=== PATIENT | female | born 1975 | race Caucasian/White ===

== ENCOUNTER → 2016-10-30 | Outpatient (CLI) | payer BC ==
[~2016-10-30] MED LIST: DENOINJ IM; DOCU-105 PO; FLV1 PO; FNTTP50 TD; LEVO25TA5 PO; MRLP17X PO; NAPR-943 PO; ONDA4TAB46 PO; OXYC-164 PO; OXYC-609 PO; PRD/25 PO; PRED10TA PO; PRLSR20 PO; PROC1TAB5 PO; SNQ/25 PO; SPIR1TAB46 PO; WLLSR/150 PO; [UNRECOGNIZED DRUG - CODE]
== END | disposition home or self-care (01) ==
LOC: C.PAPS 10:02
PROVIDERS: ATTEND Obstetrics & Gynecology
DX: Z01.419 Encounter for gynecological examination (general) (routine) without abnormal findings (principal)

== ENCOUNTER 2016-12-22 14:24 | Inpatient (IN) | payer BC ==
[2016-12-22] VITALS (7 sets, daily range): BP systolic 98–117; BP diastolic 68–80; PULSE 80–92; TEMP 36.6–36.8; O2SAT 96–100; BMI 20.2
[~2016-12-22] VITALS: Ht 160 cm; Wt 52.3 kg
[~2016-12-22 14:24] MED LIST changes: -DOCU-105 PO; -FNTTP50 TD; -LEVO25TA5 PO; -MRLP17X PO; -OXYC-164 PO; -OXYC-609 PO; -PRED10TA PO; -SPIR1TAB46 PO; -[UNRECOGNIZED DRUG - CODE]
[2016-12-22 15:05] LABS: BASO % 1.2 %; BASO ABS # 0.04 K/uL (0-0.2); EOS % 0.9 %; HEMATOCRIT 34.5 % (37-47); IG% 1.2 %; LYMPH ABS # 0.58 K/uL (1.2-3.4); MEAN CELL VOLUME 88.7 fL (80-100); MEAN CORPUSCULAR HEMOGLOBIN 28.3 pg (25-34); MEAN CORPUSCULAR HGB CONC 31.9 g/dl (32-36); MEAN PLATELET VOLUME 9.6 fL (7.4-10.4); MONO % 24.8 %; NEUT % 53.9 %; PLATELET COUNT 274 K/uL (130-400); RED BLOOD COUNT 3.89 M/uL (4.2-5.4); WHITE BLOOD COUNT 3.23 K/uL (4.8-10.8)
--- NOTE | 2016-12-22 15:19 | EMERGENCY ROOM VISIT NOTE ---
History First contact with patient: 15:05 Chief Complaint: ABDOMINAL PAIN Stated Complaint: FLUID RETENTION IN ABD., PAIN/DISCOMFORT History of Present Illness The patient is a 41 year old female with stage IV breast cancer involving her brain, liver and bones (under Dr Alan Hendrickson) who presents to the Emergency Room with complaints of abdominal pain and distension. She recently was diagnosed with moderate ascites and bilateral pleural effusion (L>R) on PET scan on 12/18/2016 and plan was for paracentesis on Friday in 2 days time. However she has had much worse abdominal distension and pain since then and does not feel she can wait till Friday. She is currently undergoing palliative chemotherapy (2 weeks on, 2 weeks off, due to restart on Friday). The abdominal distension is now making it harder to take deep breaths and she is becoming increasing short of breath on exertion (however her main issues is the abdominal pain currently). She denies any fevers or chills. Review of Systems Dark urine for the last 2 months Occasional intermittent chest discomfort in center of her chest for the last 2 weeks worse on coughing, dull ache in the center of her chest, 1-08/23, not currently having this. See HPI for pertinent positives & negatives. A total of 10 systems reviewed and were otherwise negative. Past Medical/Surgical History Medical Problems: (1) Rheumatoid arthritis Ascites Bilateral pleural effusion Breast cancer metastasized to bone Cancer of left breast metastatic to brain Intracranial mass Social History Smoking Status: Never Smoker Drug Use: none Marital Status: single Housing Status: lives with family Occupation Status: employed Current/Historical Medications Scheduled Bupropion Hcl (Wellbutrin Sr), 150 MG PO QAM Denosumab (Xgeva), 1 DOSE IM MONTHLY Folic Acid (Folic Acid), 2 MG PO QAM Levothyroxine Sodium (Levothyroxine Sodium), 25 MCG PO DAILY Naproxen-Esomeprazole Magnesiu (Vimovo), 1 TAB PO BID Prednisone (Prednisone), 5 MG PO DAILY Scheduled PRN Doxepin (Sinequan), 25 MG PO HS PRN for PRN Ondansetron Hcl (Zofran), 4 MG PO PRN PRN for Nausea Oxycodone HCl (Oxycodone HCl), 5 MG PO Q4 PRN for Pain Prochlorperazine Maleate (Compazine), 1 TAB PO Q6 PRN for Nausea Miscellaneous Medications Vinorelbine Tartrate (Navelbine) Allergies Coded Allergies: Sulfa Antibiotics (Verified Allergy, Unknown, rash/hives, 01/26/16) Physical Exam Vital Signs Date Time Temp Pulse Resp B/P (MAP) Pulse Ox O2 Delivery O2 Flow Rate FiO2 12/22/16 17:45 94 16 113/87 96 12/22/16 15:38 94 24 111/82 98 Room Air 12/22/16 15:02 97 Room Air 12/22/16 15:00 99 12/22/16 14:30 36.9 102 20 115/83 98 Room Air Physical Exam VITAL SIGNS: were reviewed as above GENERAL: moderate acute distress with abdominal pain, appears cachetic HEAD: Normocephalic and atraumatic EYES: extraocular muscles intact, pupils equal and reactive to light OROPHARYNX: non erythematous, clear and dry NECK: no meningismus LUNGS: bilateral decreased breath sounds at bases, no accessory muscle use, no respiratory distress HEART: Regular rate and rhythm, heart sounds 1+2, no murmurs ABDOMEN: Firm, large ascites on percussion, generalized tenderness, no guarding , no rebound, normal bowel sounds BACK: no CVA tenderness EXTREMITIES: Warm and well perfused, no calf tenderness/swelling, no pedal edema. NEUROLOGICALLY: Awake alert and oriented. There is no facial droop. Speech is clear. Vision is grossly normal., moving all 4 limbs equally Medical Decision & Procedures ER Provider Diagnostic Interpretation: ABDOMEN 2VIEW W/PA CHEST RTN CLINICAL HISTORY: Abdominal pain and distention. COMPARISON STUDY: 10/19/2015 FINDINGS: There is a right internal jugular A-Port catheter present. The heart is normal in size. There is a small left pleural effusion with left lower lobe atelectasis/consolidation. No free air is visualized. Erect and supine views the abdomen reveal no abnormally dilated loops of large or small bowel. There are no transition zone to indicate bowel obstruction. There are diffuse skeletal metastasis. IMPRESSION: 1. Extensive diffuse skeletal metastasis 2. No evidence of bowel obstruction. No evidence of free air 3. Left pleural effusion with left lower lobe atelectasis/consolidation Electronically signed by: Romel Johnson M.D. 12/22/2016 4:05 PM Dictated Date/Time: 12/22/2016 4:03 PM Laboratory Results 12/22/16 14:50 Red Blood Count 3.89, Mean Corpuscular Volume 88.7, Mean Corpuscular Hemoglobin 28.3, Mean Corpuscular Hemoglobin Concent 31.9, Mean Platelet Volume 9.6, Neutrophils (%) (Auto) 53.9, Lymphocytes (%) (Auto) 18.0, Monocytes (%) (Auto) 24.8, Eosinophils (%) (Auto) 0.9, Basophils (%) (Auto) 1.2, Neutrophils # (Auto ) 1.74, Lymphocytes # (Auto) 0.58, Monocytes # (Auto) 0.80, Eosinophils # (Auto ) 0.03, Basophils # (Auto) 0.04 12/22/16 14:50 Test 12/22/16 14:50 12/22/16 17:32 White Blood Count 3.23 K/uL (4.8-10.8) Red Blood Count 3.89 M/uL (4.2-5.4) Hemoglobin 11.0 g/dL (12.0-16.0) Hematocrit 34.5 % (37-47) Mean Corpuscular Volume 88.7 fL (80-100) Mean Corpuscular Hemoglobin 28.3 pg (25-34) Mean Corpuscular Hemoglobin Concent 31.9 g/dl (32-36) Platelet Count 274 K/uL (130-400) Mean Platelet Volume 9.6 fL (7.4-10.4) Neutrophils (%) (Auto) 53.9 % Lymphocytes (%) (Auto) 18.0 % Monocytes (%) (Auto) 24.8 % Eosinophils (%) (Auto) 0.9 % Basophils (%) (Auto) 1.2 % Neutrophils # (Auto) 1.74 K/uL (1.4-6.5) Lymphocytes # (Auto) 0.58 K/uL (1.2-3.4) Monocytes # (Auto) 0.80 K/uL (0.11-0.59) Eosinophils # (Auto) 0.03 K/uL (0-0.5) Basophils # (Auto) 0.04 K/uL (0-0.2) RDW Standard Deviation 70.1 fL (36.4-46.3) RDW Coefficient of Variation 22.3 % (11.5-14.5) Immature Granulocyte % (Auto) 1.2 % Immature Granulocyte # (Auto) 0.04 K/uL (0.00-0.02) Nucleated RBC Absolute Count (auto) 0.12 K/uL (0-0) Nucleated Red Blood Cells % 3.7 % Polychromasia 1+ Poikilocytosis PRESENT Anisocytosis PRESENT Ovalocytes 1+ Echinocytes 1+ Acanthocytes 2+ Schistocytes 2+ Prothrombin Time 12.7 SECONDS (9.0-12.0) Prothromb Time International Ratio 1.2 (0.9-1.1) Activated Partial Thromboplast Time 33.2 SECONDS (21.0-31.0) Partial Thromboplastin Ratio 1.3 Anion Gap 11.0 mmol/L (3-11) Est Creatinine Clear Calc Drug Dose 89.5 ml/min Estimated GFR () 124.8 Estimated GFR (Non- 107.7 BUN/Creatinine Ratio 16.4 (10-20) Calcium Level 7.8 mg/dl (8.5-10.1) Total Bilirubin 1.2 mg/dl (0.2-1) Aspartate Amino Transf (AST/SGOT) 89 U/L (15-37) Alanine Aminotransferase (ALT/SGPT) 35 U/L (12-78) Alkaline Phosphatase 626 U/L (45-117) Total Protein 6.0 gm/dl (6.4-8.2) Albumin 2.7 gm/dl (3.4-5.0) Globulin 3.3 gm/dl (2.5-4.0) Albumin/Globulin Ratio 0.8 (0.9-2) Lipase 64 U/L (73-393) Urine Color YELLOW Urine Appearance CLEAR (CLEAR) Urine pH 6.0 (4.5-7.5) Urine Specific [place] 1.011 (1.000-1.030) Urine Protein NEG (NEG) Urine Glucose (UA) NEG (NEG) Urine Ketones NEG (NEG) Urine Occult Blood NEG (NEG) Urine Nitrite NEG (NEG) Urine Bilirubin NEG (NEG) Urine Urobilinogen NEG (NEG) Urine Leukocyte Esterase NEG (NEG) Medications Administered Medications (Trade) Dose Ordered Sig/Sindy Route Start Time Stop Time Status Last Admin Dose Admin Morphine Sulfate (MoRPHine SULFATE INJ) 4 mg NOW STAT IV 12/22/16 15:24 12/22/16 15:25 DC 12/22/16 15:34 4 MG Ondansetron HCl (Zofran Inj) 4 mg NOW STAT IV 12/22/16 15:24 12/22/16 15:25 DC 12/22/16 15:33 4 MG Morphine Sulfate (MoRPHine SULFATE INJ) 2 mg NOW STAT IV 12/22/16 16:14 12/22/16 16:15 DC 12/22/16 16:20 2 MG Morphine Sulfate (MoRPHine SULFATE INJ) 4 mg NOW STAT IV 12/22/16 17:43 12/22/16 17:50 DC 12/22/16 17:53 4 MG ED Course 15:10 Complete history and physical and examination performed 15:[address] Guzman who advised abdominal XR series and separately saw and examined the patent around 16:10 16:[address] Koch (see below) 16:[address] Johnson regarding possibility of US paracentesis today or tomorrow. 17:[address] Marcelino who accepted the patient for evaluation for admission Medical Decision Prior records/ancillary studies reviewed. Triage Nursing notes reviewed. Additional history obtained from patient. The patient's history was concerning for abdominal pain and distension. Differential diagnosis: Etiologies such as ascites, appendicitis, diverticulitis, PUD, biliary pathology , UTI, pancreatitis, obstruction, mesenteric ischemia, aortic pathology, infections, inflammatory bowel disease, renal colic, as well as others were entertained. Physical examination findings: As above. ER treatment provided: Morphine given for pain, Zofran for nausea. On reassessment the patient felt better but had continuing abdominal pain. Diagnostics interpreted by me: The labs revealed mild anemia, low WBC, elevated ALP, AST, INR and APTT. Imaging studies: Abdominal XR series as above does not suggest obstruction as cause consistent with examination. CXR shows b/l pleural effusion L>R consistent with recent PET scan. Consultation: A consultation was placed with [facility] oncology (Dr Koch) who suggested admission under medicine given pain not under control. A consultation was placed with the radiologist Dr Johnson who suggested admission under hospitalist group for US guided paracentesis tomorrow. No current indication for emergent treatment as does not appear infected. A consultation was placed with the [facility] [place]ist Dr Marcelino who will evaluate the patient for admission/observation. This appears to be progression of her presumed malignant ascites on examination. She also has By the evaluation outlined above emergent etiologies such as appendicitis, diverticulitis, PUD, biliary pathology, UTI, pancreatitis , obstruction, mesenteric ischemia, aortic pathology, infections, inflammatory bowel disease, renal colic, as well as others were deemed relatively unlikely. The patient was informed about the findings as listed above. All questions were answered and she was pleased with the treatment plan. Consults Time Called: 17:05 Consulting Physician: [facility] (Dr Marcelino) Discussed patient in person and accepted @ 17:05 Impression Primary Impression: Ascites Additional Impression: Bilateral pleural effusion Departure Information Dispostion Being Evaluated By Hospitalist Condition FAIR Referrals Alan Hendrickson M.D. (PCP) Jacobo Bill, DO Patient Instructions My [facility] Resident Tracking Resident Involvement: Resident Care Provided Care Provided: Adult ED Problem Qualifiers Primary Impression: Ascites Ascites type: malignant Qualified Codes: R18.0 - Malignant ascites
[2016-12-22 15:20] LABS: BUN/CREATININE RATIO 16.4 (10-20); CALCIUM 7.8 mg/dl (8.5-10.1); CREATININE 0.67 mg/dl (0.60-1.20); POTASSIUM 3.9 mmol/L (3.5-5.1)
[2016-12-22 15:23] LABS: ALB/GLOB RATIO 0.8 (0.9-2)
[2016-12-22] MEDS ORDERED: ONDANSETRON INJ 2 MG/ML 2 ML VIAL IV STA (15:24)
[2016-12-22] MEDS ORDERED: MoRPHine SULFATE 4 MG/ML 1 ML CARP\\VIAL IV STA ×2 (15:24→17:43)
[2016-12-22 15:28] LABS: INR 1.2 (0.9-1.1); PARTIAL THROMBOPLASTIN RATIO 1.3; PROTHROMBIN TIME (PATIENT) 12.7 SECONDS (9.0-12.0)
[2016-12-22 15:30] LABS: ACANTHOCYTES 2+; ANISOCYTOSIS PRESENT; COMPLETE YES; ECHINOCYTES 1+; OVALOCYTES 1+; POIKILOCYTOSIS PRESENT; POLYCHROMASIA 1+; SCHISTOCYTES 2+
[2016-12-22] MEDS ORDERED: LEVO25TA5 PO (16:04)
[2016-12-22] MEDS ORDERED: OXYC-609 PO (16:04)
[2016-12-22] MEDS ORDERED: [UNRECOGNIZED DRUG - CODE] (16:06)
--- NOTE | 2016-12-22 16:06 | DIAGNOSTIC IMAGING REPORT ---
ABDOMEN 2VIEW W/PA CHEST RTN CLINICAL HISTORY: Abdominal pain and distention. COMPARISON STUDY: 10/19/2015 FINDINGS: There is a right internal jugular A-Port catheter present. The heart is normal in size. There is a small left pleural effusion with left lower lobe atelectasis/consolidation. No free air is visualized. Erect and supine views the abdomen reveal no abnormally dilated loops of large or small bowel. There are no transition zone to indicate bowel obstruction. There are diffuse skeletal metastasis. IMPRESSION: 1. Extensive diffuse skeletal metastasis 2. No evidence of bowel obstruction. No evidence of free air 3. Left pleural effusion with left lower lobe atelectasis/consolidation Electronically signed by: Romel Johnson M.D. 12/22/2016 4:05 PM Dictated Date/Time: 12/22/2016 4:03 PM
[2016-12-22] MEDS ORDERED: MoRPHine SULFATE 2 MG/ML CARP IV STA (16:14)
--- NOTE | 2016-12-22 16:15 | EMERGENCY ROOM VISIT NOTE ---
ED Visit Note First contact with patient: 15:05 Resident Physician Supervision Note: I was present with Dr. Tyler during the history and exam. I discussed the case with the resident and agree with the findings and plan as documented in the note. Documented By: Emir Guzman
[2016-12-22] MEDS ORDERED: MoRPHine SULFATE 4 MG/ML 1 ML CARP\\VIAL ONE (17:51)
[2016-12-22 17:56] LABS: URINE APPEARANCE CLEAR (CLEAR); URINE BILIRUBIN NEG (NEG); URINE COLOR YELLOW; URINE NITRITE NEG (NEG); URINE SPECIFIC GRAVITY 1.011 (1.000-1.030); UROBILINOGEN NEG (NEG); ZZUR CULT IF INDIC CLEAN CATCH NO
[2016-12-22 18:14] LABS: MANUAL MICROSCOPIC REQUIRED? NO; REVIEW REQ? NO
[2016-12-22] MEDS ORDERED: ONDANSETRON INJ 2 MG/ML 2 ML VIAL IV PRN (18:30)
[2016-12-22] MEDS ORDERED: DOXEPIN HCL 25 MG CAP PO PRN (18:30)
[2016-12-22] MEDS ORDERED: MoRPHine SULFATE 2 MG/ML CARP IV PRN (18:30)
--- NOTE | 2016-12-22 19:40 | History and Physical ---
History & Physical Date & Time of Service: Dec 22, 2016 at 19:29 Chief Complaint: Ascites,Cancer Of Left Breast Metastatic To Brain Primary Care Physician: Jacobo Bill DO History of Present Illness Source: patient The patient is a 41-year-old female with stage IV metastatic breast cancer involving brain, liver and bones, with PET CT on 12/18/2016 demonstrating ascites, with planned paracentesis on December 24, who presents to the emergency department with worsening abdominal pain and distention. She currently is undergoing chemotherapy with 2 weeks on and 2 weeks off cycle, there is due to restart in 3 days. She has noted becoming more short of breath over the past several days as well. She has not had any recent travel and she has not had any sick exposures. Social History Smoking Status: Never Smoker Smokeless Tobacco Use: No Alcohol Use: none Drug Use: none Marital Status: single Occupational Status: employed Multi-Drug Resistant Organisms History of MDRO: No Allergies Coded Allergies: Sulfa Antibiotics (Verified Allergy, Unknown, rash/hives, 01/26/16) Home Medications Scheduled Bupropion Hcl (Wellbutrin Sr), 150 MG PO QAM Denosumab (Xgeva), 1 DOSE IM MONTHLY Folic Acid (Folic Acid), 2 MG PO QAM Levothyroxine Sodium (Levothyroxine Sodium), 25 MCG PO DAILY Naproxen-Esomeprazole Magnesiu (Vimovo), 1 TAB PO BID Prednisone (Prednisone), 5 MG PO DAILY Scheduled PRN Doxepin (Sinequan), 25 MG PO HS PRN for PRN Ondansetron Hcl (Zofran), 4 MG PO PRN PRN for Nausea Oxycodone HCl (Oxycodone HCl), 5 MG PO Q4 PRN for Pain Prochlorperazine Maleate (Compazine), 1 TAB PO Q6 PRN for Nausea Miscellaneous Medications Vinorelbine Tartrate (Navelbine) Review of Systems The patient denies chest pain, palpitations, cough, sore throat, fevers, chills , sweats, nausea, vomiting, blood in urine or stool, dysuria, urinary frequency or urgency, lightheadedness, dizziness, headache, memory loss, rash, abnormal bruising or bleeding, imbalance, focal weakness, numbness or tingling in arms or legs, back or neck pain, night sweats, or allergy symptoms. The review of systems is otherwise negative other than for that already noted above, and at least 10 systems have been reviewed. Physical Exam Vital Signs Date Time Temp Pulse Resp B/P (MAP) Pulse Ox O2 Delivery O2 Flow Rate FiO2 12/22/16 19:07 36.7 87 20 115/80 (92) 100 Room Air 12/22/16 18:45 89 20 117/78 94 Room Air 12/22/16 17:45 94 16 113/87 96 12/22/16 15:38 94 24 111/82 98 Room Air 12/22/16 15:02 97 Room Air 12/22/16 15:00 99 12/22/16 14:30 36.9 102 20 115/83 98 Room Air The patient is awake, well-developed and adequately nourished, alert and oriented 3, normocephalic and atraumatic, lying in bed and in no acute distress. HEENT--PERRL, EOMI, mucous membranes and oropharynx normal. Neck--supple, no JVD or bruits, thyroid normal, trachea midline, no adenopathy. Heart--normal S1 and S2, no extra beats, no murmurs, rubs or gallops. Lungs--clear bilaterally with decreased breath sounds left base, no respiratory distress, no accessory muscle use. Abdomen--normal bowel sounds and mildly firm and distended, mildly tender. Extremities--no cyanosis, clubbing, there is trace bilateral pitting edema. There are good distal pulses b/l. Dermatologic--normal skin turgor, normal color, warm and dry, no abnormal lymph nodes, no rash. Neurologic--cranial nerves II through XII grossly intact, motor and sensory examination normal. Rheumatologic--normal range of motion, nontender, muscles and joints. Psychiatric--normal affect. Diagnostics Laboratory Results Results Past 24 Hours Test 12/22/16 14:50 12/22/16 17:32 Range/Units White Blood Count 3.23 4.8-10.8 K/uL Red Blood Count 3.89 4.2-5.4 M/uL Hemoglobin 11.0 12.0-16.0 g/dL Hematocrit 34.5 37-47 % Mean Corpuscular Volume 88.7 80-100 fL Mean Corpuscular Hemoglobin 28.3 25-34 pg Mean Corpuscular Hemoglobin Concent 31.9 32-36 g/dl Platelet Count 274 130-400 K/uL Mean Platelet Volume 9.6 7.4-10.4 fL Neutrophils (%) (Auto) 53.9 % Lymphocytes (%) (Auto) 18.0 % Monocytes (%) (Auto) 24.8 % Eosinophils (%) (Auto) 0.9 % Basophils (%) (Auto) 1.2 % Neutrophils # (Auto) 1.74 1.4-6.5 K/uL Lymphocytes # (Auto) 0.58 1.2-3.4 K/uL Monocytes # (Auto) 0.80 0.11-0.59 K/uL Eosinophils # (Auto) 0.03 0-0.5 K/uL Basophils # (Auto) 0.04 0-0.2 K/uL RDW Standard Deviation 70.1 36.4-46.3 fL RDW Coefficient of Variation 22.3 11.5-14.5 % Immature Granulocyte % (Auto) 1.2 % Immature Granulocyte # (Auto) 0.04 0.00-0.02 K/uL Nucleated RBC Absolute Count (auto) 0.12 0-0 K/uL Nucleated Red Blood Cells % 3.7 % Polychromasia 1+ Poikilocytosis PRESENT Anisocytosis PRESENT Ovalocytes 1+ Echinocytes 1+ Acanthocytes 2+ Schistocytes 2+ Prothrombin Time 12.7 9.0-12.0 SECONDS Prothromb Time International Ratio 1.2 0.9-1.1 Activated Partial Thromboplast Time 33.2 21.0-31.0 SECONDS Partial Thromboplastin Ratio 1.3 Sodium Level 140 136-145 mmol/L Potassium Level 3.9 3.5-5.1 mmol/L Chloride Level 106 98-107 mmol/L Carbon Dioxide Level 23 21-32 mmol/L Anion Gap 11.0 3-11 mmol/L Blood Urea Nitrogen 11 7-18 mg/dl Creatinine 0.67 0.60-1.20 mg/dl Est Creatinine Clear Calc Drug Dose 89.5 ml/min Estimated GFR () 124.8 Estimated GFR (Non- 107.7 BUN/Creatinine Ratio 16.4 10-20 Random Glucose 124 70-99 mg/dl Calcium Level 7.8 8.5-10.1 mg/dl Total Bilirubin 1.2 0.2-1 mg/dl Aspartate Amino Transf (AST/SGOT) 89 15-37 U/L Alanine Aminotransferase (ALT/SGPT) 35 12-78 U/L Alkaline Phosphatase 626 45-117 U/L Total Protein 6.0 6.4-8.2 gm/dl Albumin 2.7 3.4-5.0 gm/dl Globulin 3.3 2.5-4.0 gm/dl Albumin/Globulin Ratio 0.8 0.9-2 Lipase 64 73-393 U/L Urine Color YELLOW Urine Appearance CLEAR CLEAR Urine pH 6.0 4.5-7.5 Urine Specific [place] 1.011 1.000-1.030 Urine Protein NEG NEG Urine Glucose (UA) NEG NEG Urine Ketones NEG NEG Urine Occult Blood NEG NEG Urine Nitrite NEG NEG Urine Bilirubin NEG NEG Urine Urobilinogen NEG NEG Urine Leukocyte Esterase NEG NEG Diagnostic Radiology Patient Name: SAUL NIEVES Unit Number: [id number] Dictated: 12/22/161602 Transcribed: 12/22/161602 ARG Printed Date/Time: [~ rep prt dt]/[~ rep prt tm] [~ rep ct labl] - [~ rep ct ivnm] [facility] [place] [address] Dictated: 12/22/161602 Transcribed: 12/22/161602 ARG Printed Date/Time: [~ rep prt dt]/[~ rep prt tm] [~ rep ct labl] - [~ rep ct ivnm] [~ rep ct add3]] ABDOMEN 2VIEW W/PA CHEST RTN CLINICAL HISTORY: Abdominal pain and distention. COMPARISON STUDY: 10/19/2015 FINDINGS: There is a right internal jugular A-Port catheter present. The heart is normal in size. There is a small left pleural effusion with left lower lobe atelectasis/consolidation. No free air is visualized. Erect and supine views the abdomen reveal no abnormally dilated loops of large or small bowel. There are no transition zone to indicate bowel obstruction. There are diffuse skeletal metastasis. IMPRESSION: 1. Extensive diffuse skeletal metastasis 2. No evidence of bowel obstruction. No evidence of free air 3. Left pleural effusion with left lower lobe atelectasis/consolidation Electronically signed by: Romel Johnson M.D. 12/22/2016 4:05 PM Dictated Date/Time: 12/22/2016 4:03 PM The status of this report is Signed. Draft = Not yet reviewed or approved by Radiologist. Signed = Reviewed and approved by Radiologist. <AttendingPhy></AttendingPhy> <FamilyPhy>Alan Hendrickson M.D.</FamilyPhy> < PrimaryPhy>Jacobo Bill, </PrimaryPhy> <UnitNumber>[id number]</ UnitNumber> <VisitNumber>[id number]</VisitNumber> <PatientName>SAUL NIEVES Mitzi </PatientName> <DateOfBirth>1975</DateOfBirth> <Location>[facility]</Location> <ServiceDate>12/22/16</ServiceDate> <MNE>ESINDI</MNE> <OrderingPhy>Juno Tyler MD</OrderingPhy> <OrderingPhyMNE>f rep ord dr jeter</OrderingPhyMNE> < DictatingPhyMNE>f rep dict dr jeter</DictatingPhyMNE> <CCListMNE>f rep ct matildae</ CCListMNE> <AdmittingPhyMNE>f pt admit dr jeter</AdmittingPhyMNE> <AttendingPhyMNE >f pt attend dr jeter</AttendingPhyMNE> <ConsultingPhyMNE>f pt consult dr jeter</ConsultingPhyMNE> <FamilyPhyMNE>f pt fam dr jeter</FamilyPhyMNE> <OtherPhyMNE>f pt other dr jeter</OtherPhyMNE> < PrimaryPhyMNE>f pt prim care dr jeter</PrimaryPhyMNE> <ReferringPhyMNE>f pt referring dr jeter</ReferringPhyMNE> EKG EKG shows normal sinus rhythm at 93 bpm, PACs, no acute ST-T changes. Impression Assessment and Plan Metastatic breast cancer to brain, liver and bones/worsening ascites--the patient be admitted to the medical floor and be made nothing by mouth after midnight for ultrasound-guided diagnostic and therapeutic paracentesis by radiology in the morning. She'll be placed on Zofran 4 mg IV every 6 hours when necessary, and morphine sulfate 2-4 mg IV every 2 hours when necessary We' ll consult her oncologist Dr. Alan Hendrickson. Depression/insomnia--continue Wellbutrin SR 150 mg by mouth every morning and doxepin 25 mg by mouth at bedtime when necessary. Hypothyroidism--continue levothyroxine sodium 25 g by mouth daily. Chronic prednisone use increased dosing from 5 mg to 10 mg by mouth every morning. Level of Care Med/Surg Advanced Directives Existing Advance Directive: No Existing Living Will: No Existing Power of Motorcycle Mechanic Apprentice: No Resuscitation Status FULL RESUSCITATION VTE Prophylaxis VTE Risk Assessment Done? Y/N: Yes Risk Level: Moderate Given or contraindicated: SCD's Social Service Consult Cancer Patient Under [place]
[2016-12-22] MEDS: MoRPHine SULFATE 4 MG/ML 1 ML CARP\\VIAL IV PRN (19:44)
[2016-12-22] MEDS: ALBUMIN HUMAN 25% 12.5 GM/50 ML VIAL IV SCH ×2 (19:57→21:03)
--- NOTE | 2016-12-22 22:42 | DIAGNOSTIC IMAGING REPORT ---
LIMITED ABDOMINAL ULTRASOUND FOR ASCITES EVALUATION CLINICAL HISTORY: Ascites. COMPARISON STUDY: 06/19/2011 FINDINGS: There is a moderate volume of ascites present in all 4 quadrants. IMPRESSION: Moderate ascites. Electronically signed by: Romel Johnson M.D. 12/22/2016 10:41 PM Dictated Date/Time: 12/22/2016 10:39 PM
[2016-12-23] VITALS (7 sets, daily range): BP systolic 103–121; BP diastolic 72–96; PULSE 80–97; TEMP 36.2–36.7; O2SAT 97–100; Ht 160 cm; Wt 52.3 kg
[2016-12-23] MEDS: MoRPHine SULFATE 4 MG/ML 1 ML CARP\\VIAL IV PRN ×2 (00:28→06:01)
[2016-12-23 06:11] LABS: BASO % 1.9 %; BASO ABS # 0.05 K/uL (0-0.2); EOS % 1.1 %; HEMATOCRIT 30.6 % (37-47); IG% 1.9 %; LYMPH % 21.8 %; LYMPH ABS # 0.57 K/uL (1.2-3.4); MEAN CELL VOLUME 89.7 fL (80-100); MEAN CORPUSCULAR HEMOGLOBIN 27.3 pg (25-34); MEAN CORPUSCULAR HGB CONC 30.4 g/dl (32-36); MEAN PLATELET VOLUME 9.1 fL (7.4-10.4); MONO % 34.9 %; NEUT % 38.4 %; PLATELET COUNT 207 K/uL (130-400); RED BLOOD COUNT 3.41 M/uL (4.2-5.4); WHITE BLOOD COUNT 2.61 K/uL (4.8-10.8)
[2016-12-23] MEDS ORDERED: LEVOTHYROXINE 25 MCG TAB PO SCH (06:30)
[2016-12-23 06:31] LABS: INR 1.2 (0.9-1.1); PARTIAL THROMBOPLASTIN RATIO 1.8; PROTHROMBIN TIME (PATIENT) 13.1 SECONDS (9.0-12.0)
[2016-12-23 06:46] LABS: BUN/CREATININE RATIO 16.2 (10-20); CALCIUM 7.5 mg/dl (8.5-10.1); CREATININE 0.56 mg/dl (0.60-1.20); MAGNESIUM 2.4 mg/dl (1.8-2.4); POTASSIUM 3.6 mmol/L (3.5-5.1)
[2016-12-23 07:05] LABS: ANISOCYTOSIS PRESENT; COMPLETE YES; OVALOCYTES 1+; POLYCHROMASIA 1+; TEAR DROP CELLS 1+
[2016-12-23] MEDS ORDERED: BuPROPion SR 150 MG TABCR PO SCH (08:00)
[2016-12-23] MEDS ORDERED: ACETAMINOPHEN 500 MG TAB PO PRN (10:00)
--- NOTE | 2016-12-23 10:05 | DIAGNOSTIC IMAGING REPORT ---
ULTRASOUND GUIDED PARACENTESIS CLINICAL HISTORY: ASCITES COMPARISON STUDY: No previous studies for comparison. PROCEDURE: The risks, benefits, and alternatives to the procedure were discussed with the patient including the risk of bleeding, infection and injury to adjacent structures. The patient agreed to the procedure and informed written consent was obtained. The procedure was performed by Dr. Kim following a time out. Following real-time ultrasound localization, the skin was prepped and draped. Following local anesthesia with Xylocaine, the sheath paracentesis needle was inserted and approximately 2.5 liters of straw-colored fluid was removed by vacuum suction. The patient tolerated the procedure well and no immediate complications were evident. IMPRESSION: Ultrasound-guided paracentesis with removal of 2.5 liters of ascites. Electronically signed by: Rey Kim M.D. 12/23/2016 10:04 AM Dictated Date/Time: 12/23/2016 9:56 AM
[2016-12-23 11:52] LABS: PERIT FL WBC 75 /uL (0-300); PERITONEAL FLUID RBC < 3000 /uL
[2016-12-23] MEDS ORDERED: POLYETHYLENE (MIRALAX) 17 GM PACK PO ONE (13:00)
[2016-12-23] MEDS ORDERED: MRLP17X PO (13:03)
[2016-12-23] MEDS ORDERED: OXYC-164 PO (13:03)
--- NOTE | 2016-12-23 13:05 | Discharge Instructions ---
Discharge Instructions Date of Service Dec 23, 2016. 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 Instructions / Follow-Up Instructions / Follow-Up a) ascites (fluid buildup) -the fluid likely relates to the cancer -- once the fluid studies come back Dr Hendrickson will be able to tell you for sure, and modify treatment if/as appropriate -as we discussed, it is unfortunately reasonably likely that the fluid will come back - but the radiology department can do the drainage procedure as an outpatient if you need, and often now that they know you and have done this once , it's usually easier to get seen again when/if the fluid returns b) pain control -we've increased the oxycodone -- the system only has 5mg and 10mg tablets listed, so we wrote the Rx for 10mg tablets. use up to four times a day as needed for pain; if you're needing more than 4 times a day at the 10mg dosing, then Dr Hendrickson might need to add a long acting pain medicine as well c) constipation -since pain meds can be constipating, we'll want you to be pro-active with your bowels -miralax is a potent stool softener, and since it comes as a powder, it has a wide range of doses you can utilize. we recommend you base today's dose on yesterday's bowel movement (ie if you didn't poop enough, take more, if your bowels were loose, take less) ---an easy range to reference would be taking 1/2 capful as a low dose, and up to four capfuls in a day as about a bowel prep for a scope -- sticking in between there should help to keep things moving for you well Current Hospital Diet Patient's current hospital diet: Regular Diet Discharge Diet Recommended Diet: Regular Diet Pending Studies Studies pending at discharge: no Medical Emergencies . Who to Call and When: Medical Emergencies: If at any time you feel your situation is an emergency, please call 911 immediately. . Non-Emergent Contact Non-Emergency issues call your: Primary Care Provider, Oncologist . . "Provider Documentation" section prepared by Danielito Kim. . VTE Core Measure Inpt VTE Proph given/why not?: SCD's [place] Drug Monitoring Program Search Results: patient reviewed within database, no issues identified
--- NOTE | 2016-12-23 17:35 | Discharge Summary ---
Discharge Summary Date of Service Dec 23, 2016. (Rey Chang M.D.) Discharge Summary Admission Date: Dec 22, 2016 at 18:20 Discharge Date: Dec 23, 2016 Discharge Disposition: Home Principal Diagnosis: Cancer related fluid in Abdomen (ascites) (Rey Chang M.D.) Medication Reconciliation New Medications: Oxycodone Hcl (Oxycodone Hcl) 10 Mg Tab 1 TAB PO QID PRN for Pain for 30 Days, #45 TAB Polyethylene (Miralax) 17 Gm Pow 17 GM PO UD, #1 BTL Continued Medications: Bupropion Hcl (Wellbutrin Sr) 150 Mg Tabcr 150 MG PO QAM, TAB Denosumab (Xgeva) 120 Mg/1.7 Ml Inj 1 DOSE IM MONTHLY will start again soon at Dr Borges`s office Doxepin (Sinequan) 25 Mg Cap 25 MG PO HS PRN for PRN, CAP Folic Acid (Folic Acid) 1 Mg Tab 2 MG PO QAM Levothyroxine Sodium (Levothyroxine Sodium) 25 Mcg Tab 25 MCG PO DAILY Naproxen-Esomeprazole Magnesiu (Vimovo) 1 Tab Tab 1 TAB PO BID Ondansetron Hcl (Zofran) 4 Mg Tab 4 MG PO PRN PRN for Nausea, TAB Prednisone (Prednisone) 2.5 Mg Tab 5 MG PO DAILY, TAB Prochlorperazine Maleate (Compazine) 10 Mg Tab 1 TAB PO Q6 PRN for Nausea for 7 Days, #30 TAB 3 Refills Vinorelbine Tartrate (Navelbine) 10 Mg/Ml Inj 1 dose weekly for 2 weeks (wednesdays) off Friday repeat Discontinued Medications: Oxycodone HCl (Oxycodone HCl) 5 Mg Tab 5 MG PO Q4 PRN for Pain Discharge Exam pt was seen and examined at bedside after her paracentesis . Approx 2L of fluid was drained and patient felt much better. Pt was told that the fluid is likely to recur since it is likely a result of her cancer (cytology will return in about a week). Pt was advised to follow up with Dr. borges or PCP who can arrange further outpatient paracentesis. Pt states that previous to paracentesis should could not do a sit up and now she can. This was a good clinical decision making metric for whether she can determine she needs ascitic fluid removed. ROS: Chronic MSK rib and back pain, no fevers, no dysuria, no abdominal pain, no diarrhea, +constipation (soft stools very infrequently) Physical Exam GENERAL: no acute distress, minimal hair, appears cachetic HEAD: Normocephalic and atraumatic EYES: extraocular muscles intact, pupils equal and reactive to light OROPHARYNX: non erythematous, clear and dry NECK: no meningismus LUNGS: lungs CTA bilaterally, no accessory muscle use, no respiratory distress HEART: Regular rate and rhythm, heart sounds 1+2, no murmurs ABDOMEN: soft, resonant to percussion, non tender x 4 quadrants, distended, no fluid wave, no skin changes, no caput medusa, could not palpate liver or spleen , no guarding, no rebound, active bowel sounds BACK: no CVA tenderness EXTREMITIES: Warm and well perfused, no calf tenderness/swelling, no pedal edema. NEUROLOGICALLY: Awake alert and oriented. There is no facial droop. Speech is clear. Vision is grossly normal., moving all 4 limbs equally (Rey Chang M.D.) Hospital Course 41F with a PMHx of metastatic breast cancer to brain, liver and bones/worsening ascites presented for acute abdominal pain. Pt underweant a paracentesis where 2L of fluid was drained and the patient experienced a relief in her symptoms. Pt reported that her current dose of 5mg Oxycodone was not controlling her MSK pain and was discharged with 45 tabs of 10mg Oxycodone. Pt was also advised to take Miralax to help her bowels. Pt's wellbutrin, doxepin, synthroid and prednisone were continued during admission and discharge. Total Time Spent: Greater than 30 minutes This includes examination of the patient, discharge planning, medication reconciliation, and communication with other providers. (Rey Chang M.D.) Resident Physician Supervision Note: I interviewed and examined the patient. Discussed with Dr. Chang and agree with findings and plan as documented in the note. Any exceptions or clarifications are listed here: None Documented By: Danielito Kim feeling better post paracentesis wants to go home pain better controlled w stronger regimen extensive discussion on pain meds and bowel meds ROS otherwise negative except for as above vitals noted fatigued but no distress, cachectic. metastatic CA w ascites - improved pain some post paracentesis - more aggressive pain and bowel regimen, stable for home, close outpt f/u (Danielito Kim D.O.) Discharge Instructions Please refer to the electronic Patient Visit Report (Discharge Instructions) for additional information. (Rey Chang M.D.) Additional Copies To Jacobo Bill DO; Alan Borgse M.D.; Veeral. Borges MD Resident Involvement: Resident Care Provided Care Provided: [facility] (Rey Chang M.D.)
--- NOTE | 2016-12-23 17:36 | Discharge Summary ---
Discharge Summary Date of Service Dec 23, 2016. Discharge Summary Admission Date: Dec 22, 2016 at 18:20 Discharge Date: Dec 23, 2016 Discharge Disposition: Home Principal Diagnosis: abdominal pain due to ascites presumed to be cancer related Procedures: CLINICAL HISTORY: ASCITES COMPARISON STUDY: No previous studies for comparison. PROCEDURE: The risks, benefits, and alternatives to the procedure were discussed with the patient including the risk of bleeding, infection and injury to adjacent structures. The patient agreed to the procedure and informed written consent was obtained. The procedure was performed by Dr. Kim following a time out. Following real-time ultrasound localization, the skin was prepped and draped. Following local anesthesia with Xylocaine, the sheath paracentesis needle was inserted and approximately 2.5 liters of straw-colored fluid was removed by vacuum suction. The patient tolerated the procedure well and no immediate complications were evident. IMPRESSION: Ultrasound-guided paracentesis with removal of 2.5 liters of ascites. Electronically signed by: Rey Kim M.D. 12/23/2016 10:04 AM Dictated Date/Time: 12/23/2016 9:56 AM- LIMITED ABDOMINAL ULTRASOUND FOR ASCITES EVALUATION CLINICAL HISTORY: Ascites. COMPARISON STUDY: 06/19/2011 FINDINGS: There is a moderate volume of ascites present in all 4 quadrants. IMPRESSION: Moderate ascites. Electronically signed by: Romel Johnson M.D. 12/22/2016 10:41 PM Dictated Date/Time: 12/22/2016 10:39 PM ABDOMEN 2VIEW W/PA CHEST RTN CLINICAL HISTORY: Abdominal pain and distention. COMPARISON STUDY: 10/19/2015 FINDINGS: There is a right internal jugular A-Port catheter present. The heart is normal in size. There is a small left pleural effusion with left lower lobe atelectasis/consolidation. No free air is visualized. Erect and supine views the abdomen reveal no abnormally dilated loops of large or small bowel. There are no transition zone to indicate bowel obstruction. There are diffuse skeletal metastasis. IMPRESSION: 1. Extensive diffuse skeletal metastasis 2. No evidence of bowel obstruction. No evidence of free air 3. Left pleural effusion with left lower lobe atelectasis/consolidation Electronically signed by: Romel Johnson M.D. 12/22/2016 4:05 PM Dictated Date/Time: 12/22/2016 4:03 PM Last 24 Hours Test 12/23/16 05:26 12/23/16 09:30 White Blood Count 2.61 K/uL Red Blood Count 3.41 M/uL Hemoglobin 9.3 g/dL Hematocrit 30.6 % Mean Corpuscular Volume 89.7 fL Mean Corpuscular Hemoglobin 27.3 pg Mean Corpuscular Hemoglobin Concent 30.4 g/dl Platelet Count 207 K/uL Mean Platelet Volume 9.1 fL Neutrophils (%) (Auto) 38.4 % Lymphocytes (%) (Auto) 21.8 % Monocytes (%) (Auto) 34.9 % Eosinophils (%) (Auto) 1.1 % Basophils (%) (Auto) 1.9 % Neutrophils # (Auto) 1.00 K/uL Lymphocytes # (Auto) 0.57 K/uL Monocytes # (Auto) 0.91 K/uL Eosinophils # (Auto) 0.03 K/uL Basophils # (Auto) 0.05 K/uL RDW Standard Deviation 71.3 fL RDW Coefficient of Variation 22.4 % Immature Granulocyte % (Auto) 1.9 % Immature Granulocyte # (Auto) 0.05 K/uL Nucleated RBC Absolute Count (auto) 0.10 K/uL Nucleated Red Blood Cells % 4.0 % Polychromasia 1+ Anisocytosis PRESENT Tear Drop Cells 1+ Ovalocytes 1+ Prothrombin Time 13.1 SECONDS Prothromb Time International Ratio 1.2 Activated Partial Thromboplast Time 46.9 SECONDS Partial Thromboplastin Ratio 1.8 Sodium Level 141 mmol/L Potassium Level 3.6 mmol/L Chloride Level 107 mmol/L Carbon Dioxide Level 23 mmol/L Anion Gap 11.0 mmol/L Blood Urea Nitrogen 9 mg/dl Creatinine 0.56 mg/dl Est Creatinine Clear Calc Drug Dose 106.9 ml/min Estimated GFR () 132.4 Estimated GFR (Non- 114.2 BUN/Creatinine Ratio 16.2 Random Glucose 67 mg/dl Calcium Level 7.5 mg/dl Magnesium Level 2.4 mg/dl Total Bilirubin 1.0 mg/dl Direct Bilirubin 0.5 mg/dl Aspartate Amino Transf (AST/SGOT) 68 U/L Alanine Aminotransferase (ALT/SGPT) 26 U/L Alkaline Phosphatase 469 U/L Total Protein 5.4 gm/dl Albumin 2.6 gm/dl Peritoneal Fluid Color PALE YELLOW Peritoneal Fluid Appearance CLOUDY Peritoneal Fluid WBC 75 /uL Peritoneal Fluid RBC < 3000 /uL Peritoneal Fld Mononuclear WBCs (%) 87.0 % Peritoneal Fld Polynuclear WBCs (%) 13.0 % Peritoneal Fluid Total Protein 1.4 g/dl Peritoneal Fluid Albumin 0.8 g/dl Peritoneal Fluid LDH 112 IU Peritoneal Fluid Glucose 80 mg/dl Peritoneal Fluid Amylase 19 U/L Peritoneal Fluid Lipase 97 U/L Peritoneal Fluid Triglycerides 113 mg/dl Consultations: radiology for paracentesis Medication Reconciliation New Medications: Oxycodone Hcl (Oxycodone Hcl) 10 Mg Tab 1 TAB PO QID PRN for Pain for 30 Days, #45 TAB Polyethylene (Miralax) 17 Gm Pow 17 GM PO UD, #1 BTL Continued Medications: Bupropion Hcl (Wellbutrin Sr) 150 Mg Tabcr 150 MG PO QAM, TAB Denosumab (Xgeva) 120 Mg/1.7 Ml Inj 1 DOSE IM MONTHLY will start again soon at Dr Borges`s office Doxepin (Sinequan) 25 Mg Cap 25 MG PO HS PRN for PRN, CAP Folic Acid (Folic Acid) 1 Mg Tab 2 MG PO QAM Levothyroxine Sodium (Levothyroxine Sodium) 25 Mcg Tab 25 MCG PO DAILY Naproxen-Esomeprazole Magnesiu (Vimovo) 1 Tab Tab 1 TAB PO BID Ondansetron Hcl (Zofran) 4 Mg Tab 4 MG PO PRN PRN for Nausea, TAB Prednisone (Prednisone) 2.5 Mg Tab 5 MG PO DAILY, TAB Prochlorperazine Maleate (Compazine) 10 Mg Tab 1 TAB PO Q6 PRN for Nausea for 7 Days, #30 TAB 3 Refills Vinorelbine Tartrate (Navelbine) 10 Mg/Ml Inj 1 dose weekly for 2 weeks (wednesdays) off Friday repeat Discontinued Medications: Oxycodone HCl (Oxycodone HCl) 5 Mg Tab 5 MG PO Q4 PRN for Pain Discharge Exam Physical Exam: General Appearance: no apparent distress Eyes: EOMI ENT: hearing grossly normal Neck: trachea midline Respiratory/Chest: no respiratory distress, no accessory muscle use Extremities: normal inspection Neurologic/Psychiatric: senior scheduler II-XII nml as tested, alert, normal mood/affect Skin: normal color, warm/dry Hospital Course admitted with abdominal pain - found to be related to ascites -had outpatient paracentesis scheduled for tomorrow but hurting too much -admitted --> paracentesis --> feeling better, ready to go home -discussed ongoing cancer treatment and f/u, discussed probability of reaccumulation of ascites and likely need for future paracenteses, discussed coordination through dr borges -increased oxycodone to 10mg up to qid prn pain (noted that 5mg wasn't always helping enough) -discussed bowel regimen extensively - will use miralax titrate to goal of ~ 1 good BM daily -stable for home Total Time Spent: Greater than 30 minutes This includes examination of the patient, discharge planning, medication reconciliation, and communication with other providers. Discharge Instructions Please refer to the electronic Patient Visit Report (Discharge Instructions) for additional information. Additional Copies To Jacobo Bill DO; Alan Borges M.D.
[2016-12-27] MEDS ORDERED: FNTTP50 TD (08:21)
== END 2016-12-23 14:56 | disposition home or self-care (01) | DRG 598 ==
LOC: C.EDB 14:27 → C.4E 18:20 → ENRESERV 18:27
PROVIDERS: ADMIT Hospitalist; ATTEND Family Medicine
PROC: 0W9G3ZZ Drainage of Peritoneal Cavity, Percutaneous Approach (ICD-10-PCS; principal; 2016-12-23)
DX: C50.912 Malignant neoplasm of unspecified site of left female breast (principal); C78.7 Secondary malignant neoplasm of liver and intrahepatic bile duct; R18.0 Malignant ascites; C79.31 Secondary malignant neoplasm of brain; C79.51 Secondary malignant neoplasm of bone; J91.8 Pleural effusion in other conditions classified elsewhere; G89.3 Neoplasm related pain (acute) (chronic); M06.9 Rheumatoid arthritis, unspecified; E03.9 Hypothyroidism, unspecified; G47.00 Insomnia, unspecified; F32.9 Major depressive disorder, single episode, unspecified; Z79.52 Long term (current) use of systemic steroids; Z79.1 Long term (current) use of non-steroidal anti-inflammatories (NSAID); Z79.891 Long term (current) use of opiate analgesic; Z79.899 Other long term (current) drug therapy

== ENCOUNTER 2017-01-09 20:31 | Inpatient (IN) | payer OTHER, BC ==
[~2017-01-09] VITALS: Ht 160 cm; Wt 47.9 kg
[~2017-01-09 20:31] MED LIST changes: +FNTTP50 TD; +LEVO25TA5 PO; +MRLP17X PO; +OXYC-164 PO; -PRLSR20 PO; -WLLSR/150 PO; +[UNRECOGNIZED DRUG - CODE]
[2017-01-09] MEDS ORDERED: OXYC-164 PO (21:24)
[2017-01-09] MEDS ORDERED: SPIR1TAB46 PO (21:24)
[2017-01-09] MEDS ORDERED: PRED10TA PO (21:24)
[2017-01-09] MEDS ORDERED: DOCU-105 PO (21:24)
[2017-01-09 22:06] LABS: BASO % 0.2 %; BASO ABS # 0.02 K/uL (0-0.2); EOS % 0.4 %; HEMATOCRIT 36.8 % (37-47); IG% 0.7 %; LYMPH % 5.9 %; MEAN CELL VOLUME 84.2 fL (80-100); MEAN CORPUSCULAR HEMOGLOBIN 26.5 pg (25-34); MEAN CORPUSCULAR HGB CONC 31.5 g/dl (32-36); MEAN PLATELET VOLUME 8.8 fL (7.4-10.4); MONO % 8.6 %; NEUT % 84.2 %; PLATELET COUNT 207 K/uL (130-400); RED BLOOD COUNT 4.37 M/uL (4.2-5.4); WHITE BLOOD COUNT 11.86 K/uL (4.8-10.8)
[2017-01-09] MEDS ORDERED: MoRPHine SULFATE 4 MG/ML 1 ML CARP\\VIAL IV STA (22:06)
[2017-01-09 22:16] LABS: INR 1.4 (0.9-1.1); PROTHROMBIN TIME (PATIENT) 14.7 SECONDS (9.0-12.0)
--- NOTE | 2017-01-09 22:17 | DIAGNOSTIC IMAGING REPORT ---
CHEST ONE VIEW PORTABLE CLINICAL HISTORY: Shortness of breath. Chest pain. Metastatic breast cancer. COMPARISON STUDY: Chest radiograph December 22, 2016. FINDINGS: A right internal jugular [id number] remains in place. There is no pneumothorax. Extensive skeletal metastases are again noted. There is elevation of the left hemidiaphragm. A small left pleural effusion is similar to prior exam. Bibasilar opacities are noted. There is no evidence of pulmonary edema. Cardiac size is normal. IMPRESSION: 1. No change in a small left pleural effusion with left basilar opacity which may reflect atelectasis or less likely consolidation. 2. Redemonstration of extensive skeletal metastases. Electronically signed by: William Boyce M.D. 01/09/2017 10:15 PM Dictated Date/Time: 01/09/2017 10:14 PM
[2017-01-09 22:29] LABS: ALT/SGPT 49 U/L (12-78); BLOOD UREA NITROGEN 25 mg/dl (7-18); BUN/CREATININE RATIO 19.5 (10-20); CALCIUM 7.7 mg/dl (8.5-10.1); CARBON DIOXIDE 25 mmol/L (21-32); CHLORIDE 87 mmol/L (98-107); GLUCOSE 101 mg/dl (70-99); POTASSIUM 3.6 mmol/L (3.5-5.1); SODIUM 124 mmol/L (136-145)
[2017-01-09 22:34] LABS: ALKALINE PHOSPHATASE 889 U/L (45-117); AST/SGOT 201 U/L (15-37)
[2017-01-09 22:47] LABS: ANISOCYTOSIS PRESENT; COMPLETE YES
[2017-01-09] MEDS ORDERED: SODIUM CHLORIDE 0.9% 500ML 500 ML IV STA (22:49)
--- NOTE | 2017-01-09 23:50 | History and Physical ---
History & Physical Date & Time of Service: Jan 09, 2017 at 23:50 Chief Complaint: Bloating, Difficulty Breathing Primary Care Physician: Jacobo Bill DO History of Present Illness Source: patient The patient is a 41-year-old female who presents to the emergency department with worsening shortness of breath that began earlier in the day, that she attributes to worsening abdominal distention. She has a history of stage IV breast cancer, and has had a paracentesis in the past at a recent hospitalization here from December 22-, But feels that the fluid is reaccumulating. The fluid makes it difficult for her to eat, and she's had decreased bowel movements as well. She had been on chemotherapy but stopped 1 week ago, and she has elected to not have any further treatments, and will remain on hospice. Social History Smoking Status: Former Smoker Smokeless Tobacco Use: No Alcohol Use: none Drug Use: none Marital Status: single Occupational Status: disabled Multi-Drug Resistant Organisms History of MDRO: No Allergies Coded Allergies: Sulfa Antibiotics (Verified Allergy, Unknown, rash/hives, 01/09/17) Home Medications Scheduled Docusate Sodium (Dulcolax Stool Softener), 1-3 TABS PO DAILY Fentanyl (Duragesic), 50 MCG TD [id number] Levothyroxine Sodium (Levothyroxine Sodium), 25 MCG PO DAILY Naproxen-Esomeprazole Magnesiu (Vimovo), 1 TAB PO BID Prednisone Tab (Prednisone), 10 MG PO DAILY Scheduled PRN Doxepin (Sinequan), 25 MG PO HS PRN for PRN Hctz/Spironolactone 50MG/50MG (Aldactazide 50MG/50MG), 1 TAB PO DIRECTED PRN for BLOATING Ondansetron Hcl (Zofran), 4 MG PO PRN PRN for Nausea Oxycodone Hcl (Oxycodone Hcl), 10 MG PO QID PRN for Pain Prochlorperazine Maleate (Compazine), 1 TAB PO Q6 PRN for Nausea Review of Systems The patient denies palpitations, sore throat, fevers, chills, sweats, vomiting , blood in urine or stool, dysuria, urinary frequency or urgency, lightheadedness, dizziness, headache, memory loss, rash, abnormal bruising or bleeding, imbalance, focal weakness, numbness or tingling in arms or legs, night sweats. The review of systems is otherwise negative other than for that already noted above, and at least 10 systems have been reviewed. Physical Exam Vital Signs Date Time Temp Pulse Resp B/P (MAP) Pulse Ox O2 Delivery O2 Flow Rate FiO2 01/09/17 23:45 101 18 118/87 98 Room Air 01/09/17 22:22 120 18 112/84 01/09/17 21:50 117 01/09/17 20:34 36.4 134 24 113/84 96 Room Air The patient is awake, alert and oriented 3, normocephalic and atraumatic, lying in bed and in no acute distress. HEENT--PERRL, EOMI, mucous membranes and oropharynx normal. Neck--supple, no JVD or bruits, thyroid normal, trachea midline, no adenopathy. Heart--normal S1 and S2, no extra beats, no murmurs, rubs or gallops. Lungs--clear bilaterally with decreased breath sounds throughout no respiratory distress, no accessory muscle use. Abdomen--decreased bowel sounds, distended, moderately firm. Extremities--no cyanosis, clubbing or edema. There are good distal pulses b/l. Dermatologic--mildly jaundiced. Neurologic--cranial nerves II through XII grossly intact. Rheumatologic--limited by ascites and abdominal pain. Psychiatric--normal affect. Diagnostics Laboratory Results Results Past 24 Hours Test 01/09/17 21:45 Range/Units White Blood Count 11.86 4.8-10.8 K/uL Red Blood Count 4.37 4.2-5.4 M/uL Hemoglobin 11.6 12.0-16.0 g/dL Hematocrit 36.8 37-47 % Mean Corpuscular Volume 84.2 80-100 fL Mean Corpuscular Hemoglobin 26.5 25-34 pg Mean Corpuscular Hemoglobin Concent 31.5 32-36 g/dl Platelet Count 207 130-400 K/uL Mean Platelet Volume 8.8 7.4-10.4 fL Neutrophils (%) (Auto) 84.2 % Lymphocytes (%) (Auto) 5.9 % Monocytes (%) (Auto) 8.6 % Eosinophils (%) (Auto) 0.4 % Basophils (%) (Auto) 0.2 % Neutrophils # (Auto) 9.99 1.4-6.5 K/uL Lymphocytes # (Auto) 0.70 1.2-3.4 K/uL Monocytes # (Auto) 1.02 0.11-0.59 K/uL Eosinophils # (Auto) 0.05 0-0.5 K/uL Basophils # (Auto) 0.02 0-0.2 K/uL RDW Standard Deviation 68.2 36.4-46.3 fL RDW Coefficient of Variation 22.2 11.5-14.5 % Immature Granulocyte % (Auto) 0.7 % Immature Granulocyte # (Auto) 0.08 0.00-0.02 K/uL Nucleated RBC Absolute Count (auto) 0.12 0-0 K/uL Nucleated Red Blood Cells % 1.0 % Anisocytosis PRESENT Prothrombin Time 14.7 9.0-12.0 SECONDS Prothromb Time International Ratio 1.4 0.9-1.1 Sodium Level 124 136-145 mmol/L Potassium Level 3.6 3.5-5.1 mmol/L Chloride Level 87 98-107 mmol/L Carbon Dioxide Level 25 21-32 mmol/L Anion Gap 12.0 3-11 mmol/L Blood Urea Nitrogen 25 7-18 mg/dl Creatinine 1.30 0.60-1.20 mg/dl Est Creatinine Clear Calc Drug Dose 46.1 ml/min Estimated GFR () 58.2 Estimated GFR (Non- 50.2 BUN/Creatinine Ratio 19.5 10-20 Random Glucose 101 70-99 mg/dl Calcium Level 7.7 8.5-10.1 mg/dl Total Bilirubin 4.1 0.2-1 mg/dl Direct Bilirubin 2.9 0-0.2 mg/dl Aspartate Amino Transf (AST/SGOT) 201 15-37 U/L Alanine Aminotransferase (ALT/SGPT) 49 12-78 U/L Alkaline Phosphatase 889 45-117 U/L Troponin I < 0.015 0-0.045 ng/ml Total Protein 6.1 6.4-8.2 gm/dl Albumin 2.3 3.4-5.0 gm/dl Diagnostic Radiology Patient Name: SAUL NIEVES Unit Number: [id number] Dictated: 01/09/172213 Transcribed: 01/09/172213 JA Printed Date/Time: [~ rep prt dt]/[~ rep prt tm] [~ rep ct labl] - [~ rep ct ivnm] [facility] Radiology Department [place], [place] [id number] Dictated: 01/09/172213 Transcribed: 01/09/172213 JA Printed Date/Time: [~ rep prt dt]/[~ rep prt tm] [~ rep ct labl] - [~ rep ct ivnm] [~ rep ct add3]] CHEST ONE VIEW PORTABLE CLINICAL HISTORY: Shortness of breath. Chest pain. Metastatic breast cancer. COMPARISON STUDY: Chest radiograph December 22, 2016. FINDINGS: A right internal jugular [id number]-j-Jpdu remains in place. There is no pneumothorax. Extensive skeletal metastases are again noted. There is elevation of the left hemidiaphragm. A small left pleural effusion is similar to prior exam. Bibasilar opacities are noted. There is no evidence of pulmonary edema. Cardiac size is normal. IMPRESSION: 1. No change in a small left pleural effusion with left basilar opacity which may reflect atelectasis or less likely consolidation. 2. Redemonstration of extensive skeletal metastases. Electronically signed by: William Boyce M.D. 01/09/2017 10:15 PM Dictated Date/Time: 01/09/2017 10:14 PM The status of this report is Signed. Draft = Not yet reviewed or approved by Radiologist. Signed = Reviewed and approved by Radiologist. <AttendingPhy></AttendingPhy> <FamilyPhy>Jacobo Bill DO</FamilyPhy> < PrimaryPhy>Jacobo Bill, DO</PrimaryPhy> <UnitNumber>[id number]</ UnitNumber> <VisitNumber>[id number]</VisitNumber> <PatientName>SAUL NIEVES </PatientName> <DateOfBirth>1975</DateOfBirth> <Location>[facility]</Location> <ServiceDate>01/09/17</ServiceDate> <MNE>ESINDI</MNE> <OrderingPhy>Danielito Arambula DO</OrderingPhy> <OrderingPhyMNE>f rep ord dr mne</OrderingPhyMNE> < DictatingPhyMNE>f rep dict dr jeter</DictatingPhyMNE> <CCListMNE>f rep ct mne</ CCListMNE> <AdmittingPhyMNE>f pt admit dr jeter</AdmittingPhyMNE> <AttendingPhyMNE >f pt attend dr jeter</AttendingPhyMNE> <ConsultingPhyMNE>f pt consult dr jeter</ConsultingPhyMNE> <FamilyPhyMNE>f pt fam dr jeter</FamilyPhyMNE> <OtherPhyMNE>f pt other dr jeter</OtherPhyMNE> < PrimaryPhyMNE>f pt prim care dr jeter</PrimaryPhyMNE> <ReferringPhyMNE>f pt referring dr jeter</ReferringPhyMNE> EKG EKG shows sinus tachycardia at 112 bpm, there are no acute ST-T changes. Impression Assessment and Plan Stage IV breast cancer with return of ascites causing shortness of breath, abdominal discomfort, decreased oral intake, vzu-oesqkwudg-[id number]-movements -- the patient will be admitted to the medical surgical floor. We'll order ultrasound-guided paracentesis by radiology. She should be considered for placement of a Catheter, since her ascites has accumulated so quickly. The patient has become concerned about decreased oral intake, and we'll see if her ability to eat will improve with removal of fluid. Other options such as TPN were discussed, but suggested her hospice but not likely go along with that idea. We'll place on Zofran 4 mg IV every 6 hours when necessary, pantoprazole 40 mg by mouth daily, and continue her fentanyl patch 50 g changing every 72 hours. We'll stop prednisone 10 mg by mouth daily and place on stress dose hydrocortisone 100 mg IV every 8 hours. Morphine sulfate 2-4 mg IV every 2 hours when necessary breakthrough pain. Level of Care Med/Surg Advanced Directives Existing Advance Directive: No Existing Living Will: No Existing Power of Service Captain: No Resuscitation Status FULL RESUSCITATION VTE Prophylaxis VTE Risk Assessment Done? Y/N: Yes Risk Level: Moderate Given or contraindicated: SCD's
--- NOTE | 2017-01-09 23:57 | EMERGENCY ROOM VISIT NOTE ---
History Report prepared by Jaye: Mini Shetty Under the Supervision of: Dr. Danielito Arambula D.O. First contact with patient: 21:04 Chief Complaint: RESPIRATORY PROBLEMS Stated Complaint: BLOATING, DIFFICULTY BREATHING History of Present Illness The patient is a 41 year old female who presents to the Emergency Room with complaints of constant difficulty breathing beginning today. The patient states that she has a history of stage IV breast cancer and is currently on hospice. She reports that she has been having difficulty with fluid buildup and she has been in pain from her boating. She notes that she was here 2.5 weeks ago and was admitted to the hospital and had fluid drained during her stay. The patient complains of shortness of breath on exertion, chest pain with deep breathing, bloating, decreased eating, and decreased fecal production. She notes that eating worsens her pain. She denies any urinary symptoms. The patient reports that she is not on blood thinners and her last bowel movement was earlier today. She states that she was on chemotherapy and it was stopped 1 week ago. She notes that she is no longer having any treatments and will remain on hospice. Source of History: patient Onset: today Position: other (global) Quality: other (SOB) Modifying Factors (Worsening): exertion Associated Symptoms: + chest pain, + SOB, No urinary symptoms Note: Pt complains of bloating and decreased fecal production. Review of Systems See HPI for pertinent positives & negatives. A total of 10 systems reviewed and were otherwise negative. Past Medical & Surgical Medical Problems: (1) Ascites (2) Nausea & vomiting (3) Rheumatoid arthritis Family History No pertinent family history stated. Social History Smoking Status: Former Smoker Drug Use: none Marital Status: single Housing Status: lives with family Occupation Status: employed Current/Historical Medications Scheduled Docusate Sodium (Dulcolax Stool Softener), 1-3 TABS PO DAILY Fentanyl (Duragesic), 50 MCG TD [id number] Levothyroxine Sodium (Levothyroxine Sodium), 25 MCG PO DAILY Naproxen-Esomeprazole Magnesiu (Vimovo), 1 TAB PO BID Prednisone Tab (Prednisone), 10 MG PO DAILY Scheduled PRN Doxepin (Sinequan), 25 MG PO HS PRN for PRN Hctz/Spironolactone 50MG/50MG (Aldactazide 50MG/50MG), 1 TAB PO DIRECTED PRN for BLOATING Ondansetron Hcl (Zofran), 4 MG PO PRN PRN for Nausea Oxycodone Hcl (Oxycodone Hcl), 10 MG PO QID PRN for Pain Prochlorperazine Maleate (Compazine), 1 TAB PO Q6 PRN for Nausea Allergies Coded Allergies: Sulfa Antibiotics (Verified Allergy, Unknown, rash/hives, 01/09/17) Physical Exam Vital Signs Date Time Temp Pulse Resp B/P (MAP) Pulse Ox O2 Delivery O2 Flow Rate FiO2 01/09/17 23:45 101 18 118/87 98 Room Air 01/09/17 22:22 120 18 112/84 01/09/17 21:50 117 01/09/17 20:34 36.4 134 24 113/84 96 Room Air Physical Exam GENERAL: sitting up in bed, ill appearing, mild distress, alert, non-toxic EYE EXAM: normal conjunctiva OROPHARYNX: no exudate, no erythema, lips, buccal mucosa, and tongue normal and mucous membranes are moist NECK: supple, no nuchal rigidity, no adenopathy, non-tender CHEST: Port located along right chest wall LUNGS: Diminished at bases. Normal chest wall mechanics HEART: tachycardic, no murmurs, S1 normal and S2 normal ABDOMEN: Distended and firm, no rebound or guarding, positive fluid wave. BACK: Back is symmetrical on inspection and there is no deformity, no midline tenderness, no CVA tenderness. SKIN: no rashes and no bruising UPPER EXTREMITIES: upper extremities are grossly normal. LOWER EXTREMITIES: Mild pitting edema bilaterally NEURO EXAM: Normal sensorium, cranial nerves II-XII grossly intact, normal speech, no gross weakness of arms, no gross weakness of legs. Medical Decision & Procedures ER Provider Diagnostic Interpretation: Radiology results as stated below per my review and the radiologist's interpretation: CHEST ONE VIEW PORTABLE FINDINGS: A right internal jugular [id number] remains in place. There is no pneumothorax. Extensive skeletal metastases are again noted. There is elevation of the left hemidiaphragm. A small left pleural effusion is similar to prior exam. Bibasilar opacities are noted. There is no evidence of pulmonary edema. Cardiac size is normal. IMPRESSION: 1. No change in a small left pleural effusion with left basilar opacity which may reflect atelectasis or less likely consolidation. 2. Redemonstration of extensive skeletal metastases. Electronically signed by: William Boyce M.D. 01/09/2017 10:15 PM Dictated Date/Time: 01/09/2017 10:14 PM Laboratory Results 01/09/17 21:45 Red Blood Count 4.37, Mean Corpuscular Volume 84.2, Mean Corpuscular Hemoglobin 26.5, Mean Corpuscular Hemoglobin Concent 31.5, Mean Platelet Volume 8.8, Neutrophils (%) (Auto) 84.2, Lymphocytes (%) (Auto) 5.9, Monocytes (%) (Auto) 8.6, Eosinophils (%) (Auto) 0.4, Basophils (%) (Auto) 0.2, Neutrophils # (Auto) 9.99, Lymphocytes # (Auto) 0.70, Monocytes # (Auto) 1.02, Eosinophils # (Auto) 0.05, Basophils # (Auto) 0.02 01/09/17 21:45 Test 01/09/17 21:45 White Blood Count 11.86 K/uL (4.8-10.8) Red Blood Count 4.37 M/uL (4.2-5.4) Hemoglobin 11.6 g/dL (12.0-16.0) Hematocrit 36.8 % (37-47) Mean Corpuscular Volume 84.2 fL (80-100) Mean Corpuscular Hemoglobin 26.5 pg (25-34) Mean Corpuscular Hemoglobin Concent 31.5 g/dl (32-36) Platelet Count 207 K/uL (130-400) Mean Platelet Volume 8.8 fL (7.4-10.4) Neutrophils (%) (Auto) 84.2 % Lymphocytes (%) (Auto) 5.9 % Monocytes (%) (Auto) 8.6 % Eosinophils (%) (Auto) 0.4 % Basophils (%) (Auto) 0.2 % Neutrophils # (Auto) 9.99 K/uL (1.4-6.5) Lymphocytes # (Auto) 0.70 K/uL (1.2-3.4) Monocytes # (Auto) 1.02 K/uL (0.11-0.59) Eosinophils # (Auto) 0.05 K/uL (0-0.5) Basophils # (Auto) 0.02 K/uL (0-0.2) RDW Standard Deviation 68.2 fL (36.4-46.3) RDW Coefficient of Variation 22.2 % (11.5-14.5) Immature Granulocyte % (Auto) 0.7 % Immature Granulocyte # (Auto) 0.08 K/uL (0.00-0.02) Nucleated RBC Absolute Count (auto) 0.12 K/uL (0-0) Nucleated Red Blood Cells % 1.0 % Anisocytosis PRESENT Prothrombin Time 14.7 SECONDS (9.0-12.0) Prothromb Time International Ratio 1.4 (0.9-1.1) Anion Gap 12.0 mmol/L (3-11) Est Creatinine Clear Calc Drug Dose 46.1 ml/min Estimated GFR () 58.2 Estimated GFR (Non- 50.2 BUN/Creatinine Ratio 19.5 (10-20) Calcium Level 7.7 mg/dl (8.5-10.1) Total Bilirubin 4.1 mg/dl (0.2-1) Direct Bilirubin 2.9 mg/dl (0-0.2) Aspartate Amino Transf (AST/SGOT) 201 U/L (15-37) Alanine Aminotransferase (ALT/SGPT) 49 U/L (12-78) Alkaline Phosphatase 889 U/L (45-117) Troponin I < 0.015 ng/ml (0-0.045) Total Protein 6.1 gm/dl (6.4-8.2) Albumin 2.3 gm/dl (3.4-5.0) Laboratory results per my review. Medications Administered Medications (Trade) Dose Ordered Sig/Sindy Route Start Time Stop Time Status Last Admin Dose Admin Morphine Sulfate (MoRPHine SULFATE INJ) 4 mg NOW STAT IV 01/09/17 22:06 01/09/17 22:07 DC 01/09/17 22:26 4 MG Sodium Chloride 500 ml @ 999 mls/hr Q31M STAT IV 01/09/17 22:49 01/09/17 23:19 DC 01/09/17 22:49 999 MLS/HR ECG Rate (beats per minute): 112 Rhythm: sinus tachycardia Findings: no ectopy, other (normal axis) ED Course ED COURSE: Vital signs were reviewed and showed tachycardia The patients medical record was reviewed The above diagnostic studies were performed and reviewed. ED treatments and interventions as stated above. 2107: The patient was evaluated in room B2. A complete history and physical examination was performed. 6: Morphine Sulfate 4mg IV. 8: I reevaluated and updated the patient. 9: Sodium Chloride 500 ml @ 999 mls/hr IV. 2315: I reviewed the patient's case with Dr. Gil of [facility]. He will evaluate the patient for further management. 2324: Upon reevaluation, the patient is doing well.I discussed my findings with the patient and she understands and agrees with the treatment plan. Based on the patients age, coexisting illnesses, exam and lab findings the decision to treat as an inpatient was made. The patient remained stable while under my care. The patient will be evaluated for further management. Medical Decision Differential diagnoses includes but is not limited to pneumonia, bronchitis, COPD/Asthma exacerbation, pneumothorax, pulmonary embolism, congestive heart failure, acute coronary syndrome Medication Reconciliation: I attest that I have personally reviewed the patient' s current medication list. Blood pressure screening: Patient was found to have normal blood pressure on screening and does not require follow-up. Patient is a 41-year-old female who presents the ER for abdominal distention and shortness of breath associated with weakness. Patient has stage IV metastatic breast cancer with metastases to the brain chest and abdomen. She is referred in by her hospice nurse for admission. Upon discussion with the patient and mother along with a boyfriend I offered a paracentesis and discharge as she was on hospice. The patient notes that she is having a moderate amount pain and would like narcotics and blood work as she is not ready to now. CBC is unremarkable. BMP remarkable for hyponatremia and elevation in bilirubin and AST along with alkaline phosphatase. Troponin is negative. She is extremely tachycardic in the 130s. Abdomen is distended. Chest x-ray shows left pleural effusion which I favors intermittently for shortness of breath. It is worse than previous as it goes up to the seventh rib. Discussed performing a full evaluation on 3 separate occasions and patient notes that she wants blood work at this time along with treatment for her abdominal discomfort a pleural effusion. She does appear to be intervascular dry. She is given 500 mL of fluid and heart rate trended down. Case is discussed with internal medicine patient will be observed overnight. Consults Time Called: 2250 Consulting Physician: Dr. Gil Returned Call: [phone] I reviewed the patient's case with Dr. Gil of [facility]. He will evaluate the patient for further management. Impression Primary Impression: Ascites Additional Impressions: Pleural effusion Tachycardia Hyponatremia Scribe Attestation The scribe's documentation has been prepared under my direction and personally reviewed by me in its entirety. I confirm that the note above accurately reflects all work, treatment, procedures, and medical decision making performed by me. Departure Information Dispostion Being Evaluated By Hospitalist Referrals Jacobo Bill DO (PCP) Patient Instructions My [facility] Problem Qualifiers Primary Impression: Ascites Ascites type: malignant Qualified Codes: R18.0 - Malignant ascites
[2017-01-09] MEDS ORDERED: FENTANYL PATCH REMOVE & WASTE SCH (23:59)
[2017-01-10] VITALS (9 sets, daily range): BP systolic 106–116; BP diastolic 70–82; PULSE 102–114; TEMP 36.3–36.8; O2SAT 92–100; Ht 160 cm; Wt 47.9 kg
[2017-01-10] MEDS ORDERED: FENTANYL 50 MCG/HR TDSY TD SCH
[2017-01-10] MEDS ORDERED: HYDROCORTISONE SOD SUCCINATE 100 MG/2 ML VIAL IV STA (00:10)
[2017-01-10] MEDS ORDERED: ONDANSETRON INJ 2 MG/ML 2 ML VIAL IV PRN (00:15)
[2017-01-10] MEDS ORDERED: MoRPHine SULFATE 2 MG/ML CARP IV PRN (00:15)
[2017-01-10] MEDS: MoRPHine SULFATE 4 MG/ML 1 ML CARP\\VIAL IV PRN ×2 (01:19→15:02)
[2017-01-10] MEDS ORDERED: HYDROCORTISONE IV 100 MG in SYRINGE 0 ML IV ONE (01:30)
[2017-01-10] MEDS: FAMOTIDINE IV INJ 20 MG in DEXTROSE 5% 100ML 100 ML IV SCH ×2 (01:58→13:41)
[2017-01-10] MEDS: LEVOTHYROXINE 25 MCG TAB PO SCH (06:07)
[2017-01-10] MEDS: CHECK FENTANYL PATCH PLACEMENT SCH ×3 (08:13→23:17)
[2017-01-10] MEDS: HYDROCORTISONE IV 100 MG in SYRINGE 0 ML IV SCH ×3 (08:14→23:17)
--- NOTE | 2017-01-10 12:59 | Progress Note ---
Subjective Date of Service: Jan 10, 2017. Subjective Pt evaluation today including: conversation w/ patient, conversation w/ family , physical exam, chart review, lab review, review of studies, review of inpatient medication list Pt states pain resolved No more shortness of breath States abd distended but denies pain No acute events overnight Problem List Medical Problems: (1) Ascites Status: Acute (2) Bilateral pleural effusion Status: Acute (3) Hyponatremia Status: Acute (4) Pleural effusion Status: Acute (5) Tachycardia Status: Acute Review of Systems Constitutional: No fever, No chills, No sweats, No weight loss, No weakness Eyes: No worsening of vision, No eye pain, No redness, No discharge ENT: No hearing loss, No unusual epistaxis, No nasal symptoms, No sore throat Respiratory: No cough, No sputum, No wheezing, No shortness of breath, No dyspnea on exertion Cardiac: No chest pain, No orthopnea, No PND, No edema Abdomen: No pain, No nausea, No vomiting, No diarrhea, No constipation Musculoskeletal: No joint pain, No muscle pain, No swelling, No calf pain Female : No dysuria, No urinary frequency, No hematuria, No incontinence Neurologic: No memory loss, No paralysis, No weakness, No numbness/tingling Psychiatric: No depression symptoms, No anhedonism, No anxiety, No insomnia Endo: No fatigue, No excessive thirst Skin: No rash, No itch Objective Vital Signs Date Time Temp Pulse Resp B/P (MAP) Pulse Ox O2 Delivery O2 Flow Rate FiO2 01/10/17 11:31 36.5 110 16 115/80 (92) 97 Room Air 01/10/17 09:00 Room Air 01/10/17 07:53 36.4 114 16 116/82 (93) 96 Room Air 01/10/17 01:00 36.4 105 16 109/77 Room Air 01/10/17 00:43 95 16 119/91 95 01/09/17 23:45 101 18 118/87 98 Room Air 01/09/17 22:22 120 18 112/84 01/09/17 21:50 117 01/09/17 20:34 36.4 134 24 113/84 96 Room Air Physical Exam General Appearance: WD/WN, no apparent distress Eyes: normal inspection, PERRL, EOMI, sclerae normal Neck: supple, no adenopathy, thyroid normal, no JVD Respiratory/Chest: chest non-tender, lungs clear, normal breath sounds, no respiratory distress Cardiovascular: regular rate, rhythm, no edema, no gallop, no JVD Abdomen: normal bowel sounds, non tender, + distended Extremities: normal range of motion, non-tender, normal inspection, no pedal edema Neurologic/Psychiatric: no motor/sensory deficits, alert, normal mood/affect, oriented x 3 Laboratory Results Last 24 Hours Test 01/09/17 21:45 White Blood Count 11.86 K/uL Red Blood Count 4.37 M/uL Hemoglobin 11.6 g/dL Hematocrit 36.8 % Mean Corpuscular Volume 84.2 fL Mean Corpuscular Hemoglobin 26.5 pg Mean Corpuscular Hemoglobin Concent 31.5 g/dl Platelet Count 207 K/uL Mean Platelet Volume 8.8 fL Neutrophils (%) (Auto) 84.2 % Lymphocytes (%) (Auto) 5.9 % Monocytes (%) (Auto) 8.6 % Eosinophils (%) (Auto) 0.4 % Basophils (%) (Auto) 0.2 % Neutrophils # (Auto) 9.99 K/uL Lymphocytes # (Auto) 0.70 K/uL Monocytes # (Auto) 1.02 K/uL Eosinophils # (Auto) 0.05 K/uL Basophils # (Auto) 0.02 K/uL RDW Standard Deviation 68.2 fL RDW Coefficient of Variation 22.2 % Immature Granulocyte % (Auto) 0.7 % Immature Granulocyte # (Auto) 0.08 K/uL Nucleated RBC Absolute Count (auto) 0.12 K/uL Nucleated Red Blood Cells % 1.0 % Anisocytosis PRESENT Prothrombin Time 14.7 SECONDS Prothromb Time International Ratio 1.4 Sodium Level 124 mmol/L Potassium Level 3.6 mmol/L Chloride Level 87 mmol/L Carbon Dioxide Level 25 mmol/L Anion Gap 12.0 mmol/L Blood Urea Nitrogen 25 mg/dl Creatinine 1.30 mg/dl Est Creatinine Clear Calc Drug Dose 46.1 ml/min Estimated GFR () 58.2 Estimated GFR (Non- 50.2 BUN/Creatinine Ratio 19.5 Random Glucose 101 mg/dl Calcium Level 7.7 mg/dl Total Bilirubin 4.1 mg/dl Direct Bilirubin 2.9 mg/dl Aspartate Amino Transf (AST/SGOT) 201 U/L Alanine Aminotransferase (ALT/SGPT) 49 U/L Alkaline Phosphatase 889 U/L Troponin I < 0.015 ng/ml Total Protein 6.1 gm/dl Albumin 2.3 gm/dl Assessment and Plan Stage IV breast cancer with recurrent ascites causing shortness of breath Pt had paracentesis earlier this month during prev hospitalization. Pt currently on hospice. Pain and shortness of breath resolved at this time. Will attempt to get US abd to do therapeutic paracentesis. Cont Zofran 4 mg IV every 6 hours when necessary, pantoprazole 40 mg by mouth daily, and continue her fentanyl patch 50 g changing every 72 hours. We'll stop prednisone 10 mg by mouth daily and place on stress dose hydrocortisone 100 mg IV every 8 hours. Morphine sulfate 2-4 mg IV every 2 hours when necessary breakthrough pain. KARO likely related to dehydration/poor PO intake. Cont IV fluids and continue to check PRP Depression cont wellbutrin at this time, stable Hypothyroidism, cont synthroid Pt is DNR, and on hospice
[2017-01-10] MEDS: SODIUM CHLORIDE 0.9% 1000ML 1,000 ML IV SCH ×2 (13:16→20:45)
[2017-01-10] MEDS ORDERED: BOOST VANILLA PO SCH ×2 (14:00)
--- NOTE | 2017-01-10 15:03 | DIAGNOSTIC IMAGING REPORT ---
ULTRASOUND GUIDED THERAPEUTIC PARACENTESIS CLINICAL HISTORY: Ascites. COMPARISON STUDY: Ultrasound guided paracentesis December 23, 2016. PROCEDURE: The risks, benefits, and alternatives to the procedure were discussed with the patient including the risk of bleeding, infection and injury to adjacent structures. The patient agreed to the procedure and informed written consent was obtained. Following real-time ultrasound localization, the skin of the left lower quadrant was prepped and draped. Following local anesthesia with Xylocaine, the sheath paracentesis needle was inserted and approximately 6.2 liters of straw-colored fluid was removed by vacuum suction. The patient tolerated the procedure well and no immediate complications were evident. IMPRESSION: Ultrasound-guided paracentesis with removal of 6.2 liters of ascites. Electronically signed by: William Boyce M.D. 01/10/2017 3:01 PM Dictated Date/Time: 01/10/2017 3:01 PM
[2017-01-10] MEDS ORDERED: NURSING DECISION MEDICATION ORDER SCH (15:30)
[2017-01-10 16:56] LABS: BUN/CREATININE RATIO 22.2 (10-20); CALCIUM 7.3 mg/dl (8.5-10.1); CREATININE 1.3 mg/dl (0.60-1.20); POTASSIUM 3.7 mmol/L (3.5-5.1)
[2017-01-10] MEDS: BOOST VANILLA PO SCH ×2 (20:01)
[2017-01-11] MEDS: FAMOTIDINE IV INJ 20 MG in DEXTROSE 5% 100ML 100 ML IV SCH (02:20)
[2017-01-11 04:30] VITALS: BP 102/68; PULSE 101; TEMP 36.5; O2SAT 95
[2017-01-11] MEDS: SODIUM CHLORIDE 0.9% 1000ML 1,000 ML IV SCH (05:22)
[2017-01-11] MEDS: LEVOTHYROXINE 25 MCG TAB PO SCH (05:22)
[2017-01-11 06:21] LABS: INR 1.5 (0.9-1.1); PARTIAL THROMBOPLASTIN RATIO 1.3; PROTHROMBIN TIME (PATIENT) 16.1 SECONDS (9.0-12.0)
[2017-01-11 06:38] LABS: BUN/CREATININE RATIO 19.9 (10-20); CALCIUM 6.8 mg/dl (8.5-10.1); CREATININE 1.3 mg/dl (0.60-1.20); MAGNESIUM 2.8 mg/dl (1.8-2.4); POTASSIUM 3.9 mmol/L (3.5-5.1)
[2017-01-11 06:52] LABS: BASO % 0.1 %; BASO ABS # 0.01 K/uL (0-0.2); COMPLETE YES; ECHINOCYTES 1+; EOS % 0.1 %; HEMATOCRIT 32.3 % (37-47); IG% 0.7 %; LYMPH % 7.4 %; LYMPH ABS # 0.78 K/uL (1.2-3.4); MEAN CELL VOLUME 84.3 fL (80-100); MEAN CORPUSCULAR HEMOGLOBIN 27.9 pg (25-34); MEAN CORPUSCULAR HGB CONC 33.1 g/dl (32-36); MEAN PLATELET VOLUME 9.7 fL (7.4-10.4); MONO % 8.2 %; NEUT % 83.5 %; OVALOCYTES 1+; PLATELET COUNT 140 K/uL (130-400); PLT ESTIMATE NORMAL; POLYCHROMASIA 1+; RED BLOOD COUNT 3.83 M/uL (4.2-5.4); TEAR DROP CELLS 1+; WHITE BLOOD COUNT 10.59 K/uL (4.8-10.8)
[2017-01-11 06:53] LABS: ANISOCYTOSIS PRESENT
[2017-01-11 06:54] LABS: ALB/GLOB RATIO 0.6 (0.9-2)
[2017-01-11 07:45] VITALS: BP 102/67; PULSE 108; TEMP 36.7; O2SAT 96
[2017-01-11 08:15] VITALS: O2SAT 96
[2017-01-11] MEDS: HYDROCORTISONE IV 100 MG in SYRINGE 0 ML IV SCH (08:16)
[2017-01-11] MEDS: CHECK FENTANYL PATCH PLACEMENT SCH (08:17)
[2017-01-11] MEDS: BOOST VANILLA PO SCH ×2 (08:17)
[2017-01-11] MEDS: MoRPHine SULFATE 4 MG/ML 1 ML CARP\\VIAL IV PRN (09:18)
--- NOTE | 2017-01-11 10:50 | Discharge Instructions ---
Discharge Instructions Date of Service Jan 11, 2017. Admission Reason for Admission: Ascites, Nausea And Vomiting Discharge Discharge Diagnosis / Problem: Ascites, cancer Discharge Goals Goal(s): Decrease discomfort, Improve function, Increase independence, Improve disease control, Learn about illness, Diagnostic testing, Therapeutic intervention, Prevent Disease Progression Activity Recommendations Activity Limitations: resume your previous activity Shower/Bathe: no limitations . Instructions / Follow-Up Instructions / Follow-Up Patient to be discharged back to hospice home Appointment set up for Dr Haja Bill on 01/15/17 at 9:15 AM If worsening pain, abdominal distention, shortness of breath or fevers please report to ER No changes made in medications at this time Current Hospital Diet Patient's current hospital diet: Regular Diet Discharge Diet Recommended Diet: Regular Diet Pending Studies Studies pending at discharge: no Medical Emergencies . Who to Call and When: Medical Emergencies: If at any time you feel your situation is an emergency, please call 911 immediately. . Non-Emergent Contact Non-Emergency issues call your: Primary Care Provider Call Non-Emergent contact if: your pain is worsening . . "Provider Documentation" section prepared by Magdy Abad. . VTE Core Measure Inpt VTE Proph given/why not?: SCD's
[2017-01-11 10:52] VITALS: BP 102/67; PULSE 108; TEMP 36.7; O2SAT 96
--- NOTE | 2017-01-11 12:47 | Discharge Summary ---
Discharge Summary Date of Service Jan 11, 2017. Discharge Summary Admission Date: Jan 09, 2017 at 23:50 Discharge Date: Jan 11, 2017 Discharge Disposition: Home with services (home hospice) Principal Diagnosis: Metastatic breast cancer, ascites Medication Reconciliation Continued Medications: Docusate Sodium (Dulcolax Stool Softener) 100 Mg Cap 1-3 TABS PO DAILY Doxepin (Sinequan) 25 Mg Cap 25 MG PO HS PRN for PRN, CAP Fentanyl (Duragesic) 50 Mcg Tdsy 50 MCG TD CQ72HR, PATCH Hctz/Spironolactone 50MG/50MG (Aldactazide 50MG/50MG) Tab 1 TAB PO DIRECTED PRN for BLOATING, TAB Levothyroxine Sodium (Levothyroxine Sodium) 25 Mcg Tab 25 MCG PO DAILY Naproxen-Esomeprazole Magnesiu (Vimovo) 1 Tab Tab 1 TAB PO BID Ondansetron Hcl (Zofran) 4 Mg Tab 4 MG PO PRN PRN for Nausea, TAB Oxycodone Hcl (Oxycodone Hcl) 10 Mg Tab 10 MG PO QID PRN for Pain for 30 Days, #120 TAB Prednisone Tab (Prednisone) 10 Mg Tab 10 MG PO DAILY, TAB Prochlorperazine Maleate (Compazine) 10 Mg Tab 1 TAB PO Q6 PRN for Nausea for 7 Days, #30 TAB 3 Refills Discharge Exam Review of Systems: Constitutional: No fever, No chills, No sweats, No weakness Eyes: No worsening of vision, No eye pain, No redness, No discharge ENT: No hearing loss, No unusual epistaxis, No nasal symptoms, No sore throat Respiratory: No cough, No sputum, No wheezing, No shortness of breath, No dyspnea on exertion Cardiovascular: No chest pain, No orthopnea, No PND, No edema Abdomen: No pain, No nausea, No vomiting, No diarrhea Musculoskeletal: No joint pain, No muscle pain, No swelling, No calf pain Genitourinary - Female: No dysuria, No urinary frequency, No urinary urgency , No urinary incontinence Neurologic: No memory loss, No paralysis, No weakness, No numbness/tingling Psychiatric: No depression symptoms, No anhedonism, No anxiety, No insomnia Physical Exam: General Appearance: WD/WN, no apparent distress Eyes: normal inspection, PERRL, EOMI, sclerae normal ENT: normal ENT inspection, hearing grossly normal, TMs normal, pharynx normal Neck: supple, no adenopathy, thyroid normal, no JVD Respiratory/Chest: chest non-tender, lungs clear, normal breath sounds, no respiratory distress Cardiovascular: regular rate, rhythm, no edema, no gallop, no JVD Abdomen / GI: normal bowel sounds, non tender, soft, no organomegaly Extremities: normal inspection, no calf tenderness, normal capillary refill , no pedal edema Neurologic/Psychiatric: alert, normal mood/affect, normal reflexes, oriented x 3 Skin: normal color, warm/dry, no rash Lymphatic: no adenopathy Hospital Course Stage IV breast cancer with recurrent ascites causing shortness of breath Pt had paracentesis earlier this month during prev hospitalization. Pt currently on home hospice. Pain and shortness of breath resolved at this time. Us guided paracentesis of 6 L removed. Cont Zofran 4 mg IV every 6 hours when necessary, pantoprazole 40 mg by mouth daily, and continue her fentanyl patch 50 g changing every 72 hours. Morphine sulfate 2-4 mg IV every 2 hours when necessary breakthrough pain. Pt discharged back to home hospice with f/u with Dr Bill on 01/15 KARO likely related to dehydration/poor PO intake. ?element of CKD vs manifestations of breast cancer Depression cont wellbutrin at this time, stable Hypothyroidism, cont synthroid Pt is DNR, and on hospice Total Time Spent: Greater than 30 minutes This includes examination of the patient, discharge planning, medication reconciliation, and communication with other providers. Discharge Instructions Please refer to the electronic Patient Visit Report (Discharge Instructions) for additional information. Additional Copies To Jacobo Bill, DO
== END 2017-01-11 11:50 | disposition hospice, home (50) | DRG 598 ==
LOC: C.EDB 20:32 → C.4E 23:50 → ENRESERV 23:55
PROVIDERS: ADMIT Hospitalist; ATTEND Hospitalist
PROC: 0W9G3ZZ Drainage of Peritoneal Cavity, Percutaneous Approach (ICD-10-PCS; principal; 2017-01-10)
DX: C50.919 Malignant neoplasm of unspecified site of unspecified female breast (principal); R18.0 Malignant ascites; J90 Pleural effusion, not elsewhere classified; N17.9 Acute kidney failure, unspecified; E87.1 Hypo-osmolality and hyponatremia; Z66 Do not resuscitate; M06.9 Rheumatoid arthritis, unspecified; R00.0 Tachycardia, unspecified; E86.0 Dehydration; F32.9 Major depressive disorder, single episode, unspecified; Z87.891 Personal history of nicotine dependence